=== PATIENT | female | born 1955 | race Caucasian/White ===

== ENCOUNTER 2022-08-27 18:45 | Emergency (ER) | payer OTHER ==
[~2022-08-27] VITALS: Ht 165.1 cm; Wt 129.3 kg
[2022-08-27 18:45] VITALS: BP 134/79
--- NOTE | 2022-08-27 18:45 | NUR ---
TO CHAIR Su[facility]ail AMBUL[facility]
--- NOTE | 2022-08-27 20:15 | NUR ---
Note rainerousmane in EDM - 08/27/22 at 2227 [facility] Patient discharged with v/s stable. Written and verbal after care instructions given and explained. Patient alert, oriented and verbalized understanding of instructions. Ambulatory with steady gait. All questions addressed prior to discharge. ID band removed. Patient advised to follow up with PMD. Rx of NAPROSYN, LIDODERM, VALIUM given. Patient educated on indication of medication including possible reaction and side effects. Opportunity to ask questions provided and answered.
[2022-08-27] MEDS ORDERED: KETOROLAC 60 MG/2 ML VIAL IM ONE (20:20)
[2022-08-27] MEDS ORDERED: diazePAM 5 MG TAB PO ONE (20:20)
--- NOTE | 2022-08-27 20:30 | NUR ---
MEDICATED PER [facility] ORDER.
--- NOTE | 2022-08-27 20:35 | NUR ---
TO CT WITH THE TECH VIA WHEEL CHAIR.
[2022-08-27] MEDS ORDERED: NAPR-54 PO (22:05)
[2022-08-27] MEDS ORDERED: LID5T TP (22:05)
[2022-08-27] MEDS ORDERED: DIAZ5TAB6 PO (22:05)
[2022-08-27 22:15] VITALS: BP 119/82
--- NOTE | 2022-08-27 22:15 | NUR ---
Patient discharged with v/s stable. Written and verbal after care instructions given and explained. Patient alert, oriented and verbalized understanding of instructions. Ambulatory with steady gait. All questions addressed prior to discharge. ID band removed. Patient advised to follow up with PMD. Rx of NAPROSYN, VALUIM, LIDODERM given. Patient educated on indication of medication including possible reaction and side effects. Opportunity to ask questions provided and answered.
== END 2022-08-27 21:15 | disposition home or self-care (01) ==
LOC: MED 18:45
DX: S16.1XXA Strain of muscle, fascia and tendon at neck level, initial encounter (principal); R07.89 Other chest pain; Z90.49 Acquired absence of other specified parts of digestive tract; V49.88XA Car occupant (driver) (passenger) injured in other specified transport accidents, initial encounter; Y93.89 Activity, other specified; Y92.89 Other specified places as the place of occurrence of the external cause; Y99.8 Other external cause status
CPT/HCPCS: 71250; 72125; 96372; 99284; J1885